=== PATIENT | female | born 1970 | race Caucasian/White ===

== ENCOUNTER 2018-09-03 09:16 | Day surgery (SDC) | payer BC ==
[2018-09-03 09:50] LABS: ADD MAN DIFF? NO
[2018-09-03 09:53] LABS: WHITE BLOOD COUNT 5.5 10^3/ul (4.8-10.8)
[2018-09-03 09:53] LABS: BASOPHILS % 0.6 % (0.0-2.0); EOSINOPHILS # 0.1 10^3/ul (0.0-0.5); EOSINOPHILS % 1.8 % (0.0-7.0); HEMATOCRIT 39.6 % (37.0-47.0); HEMOGLOBIN 13.5 g/dl (12.0-16.0); LYMPHOCYTES # 1.6 10^3/ul (0.8-2.9); LYMPHOCYTES % 29.2 % (15.0-51.0); MEAN CORPUSCULAR HEMOGLOBIN 30.7 pg (29.0-33.0); MEAN CORPUSCULAR HGB CONC 34.1 g/dl (32.0-37.0); MEAN PLATELET VOLUME 9.1 fl (7.4-10.4); MONOCYTE # 0.6 10^3/ul (0.3-0.9); MONOCYTES % 11.4 % (0.0-11.0); NEUTROPHIL # 3.1 10^3/ul (1.6-7.5); NEUTROPHILS % 56.4 % (39.0-77.0); PLATELET COUNT 309 10^3/UL (140-415); RED CELL DISTRIBUTION WIDTH 13.6 % (11.5-14.5)
[2018-09-03 10:12] LABS: INR 0.87; PROTIME 11.9 Sec (11.9-14.9); PT RATIO 0.9
[2018-09-03 10:13] LABS: ALANINE AMINOTRANSFERASE 30 IU/L (13-69); ALBUMIN 4.5 g/dl (3.3-4.9); ALBUMIN/GLOBULIN RATIO 1.55; ALKALINE PHOSPHATASE 73 IU/L (42-121); ANION GAP 11 (5-13); ASPARTATE AMINO TRANSFERASE 33 IU/L (15-46); BILIRUBIN,INDIRECT 0.3 mg/dl (0-1.1); BILIRUBIN,TOTAL 0.3 mg/dl (0.2-1.3); BLOOD UREA NITROGEN 12 mg/dl (7-20); CALCIUM 9.4 mg/dl (8.4-10.2); CARBON DIOXIDE 26 mmol/L (21-31); CHLORIDE 106 mmol/L (97-110); CREATININE 0.49 mg/dl (0.44-1.00); Estimated GFR > 60 mL/min (>60); GLUCOSE 97 mg/dl (70-220); PARTIAL THROMBOPLASTIN TIME 29.1 Sec (23.0-35.0); POTASSIUM 4.2 mmol/L (3.5-5.1); SODIUM 143 mmol/L (135-144); TOTAL PROTEIN 7.4 g/dl (6.1-8.1)
[2018-09-03] MEDS: SOD CHLORIDE 0.9% 1,000 ML IV (10:16)
[2018-09-03] MEDS ORDERED: DESFLURANE 15 MIN (11:50)
[2018-09-03] MEDS ORDERED: ONDANSETRON 4 MG INJ (11:54)
[2018-09-03] MEDS ORDERED: NEOSTIGMINE 3 MG/3 ML SYRINGE (11:54)
[2018-09-03] MEDS ORDERED: FENTAnyl 50 MCG/ML VIAL (11:54)
[2018-09-03] MEDS ORDERED: CEFAZOLIN 1 GM INJ (11:54)
[2018-09-03] MEDS ORDERED: PROPOFOL 20 ML (11:54)
[2018-09-03] MEDS ORDERED: GLYCOPYRROLATE 0.4 MG INJ (11:54)
[2018-09-03] MEDS ORDERED: ROCURONIUM 50 MG INJ (11:54)
[2018-09-03] MEDS ORDERED: DEXAMETHASONE 4 MG/ML 5 ML INJ (11:54)
[2018-09-03] MEDS ORDERED: MIDAZOLAM 1 MG/ML 2 ML INJ (11:54)
[2018-09-03] MEDS ORDERED: hydrALAzine 20 MG INJ IV (12:00)
[2018-09-03] MEDS ORDERED: ONDANSETRON 4 MG INJ IV (12:00)
[2018-09-03] MEDS ORDERED: HYDROmorphONE 1 MG/5 ML IV SYRINGE IV ×2 (12:00)
[2018-09-03] MEDS ORDERED: FENTAnyl 50 MCG/ML VIAL IV ×3 (12:00)
[2018-09-03] MEDS ORDERED: ALBUTEROL 0.083% (NEB) 2.5 MG/3 ML AMP HHN (12:00)
[2018-09-03] MEDS ORDERED: EPHEDrine 25 MG/5 ML SYG IV (12:00)
[2018-09-03] MEDS ORDERED: DIPHENHYDRAMINE 50 MG INJ IV (12:00)
[2018-09-03] MEDS ORDERED: TRIMETHOBENZAMIDE 100 MG/ML VIAL IM (12:00)
[2018-09-03] MEDS ORDERED: IPRATROPIUM (NEB) 0.5 MG/2.5 ML AMP HHN (12:00)
[2018-09-03] MEDS ORDERED: MEPERIDINE 25 MG INJ IV (12:00)
[2018-09-03] MEDS ORDERED: LABETALOL HCL 20MG INJ IV (12:00)
[2018-09-03] MEDS ORDERED: OXYCODONE/ACETAMINOPHEN (5/325) TAB PO (12:00)
[2018-09-03] MEDS ORDERED: MIDAZOLAM 1 MG/ML 2 ML INJ IV (12:00)
[2018-09-03] MEDS: BUPIVACAINE 0.25% (MPF) 30 ML INJ (12:44)
[2018-09-03] MEDS ORDERED: SUGAMMADEX SODIUM 200 MG/2 ML VIAL IV (12:51)
[2018-09-03] MEDS: CEFAZOLIN 2 GM/50 ML (PMX) 50 ML IVPB (13:34)
[2018-09-03] MEDS: HYDROmorphONE 1 MG/5 ML IV SYRINGE IV (13:34)
[2018-09-03] MEDS: HYDROCODONE/APAP (5/325) TAB PO (13:57)
[2018-09-03] MEDS: OXYCODONE/ACETAMINOPHEN (5/325) TAB PO (14:33)
== END 2018-09-03 15:07 | disposition home or self-care (01) ==
LOC: SDS 09:16
DX: C82.35 Follicular lymphoma grade IIIa, lymph nodes of inguinal region and lower limb (principal)
CPT/HCPCS: 14001; 71045; 80053; 84703; 85025; 85610; 85730; 88307; 88313; 93005

== ENCOUNTER 2018-11-21 11:17 | Emergency (ER) | payer BC | END 2018-11-21 13:06 | disposition home or self-care (01) | LOC: FTE 11:17 | DX: Z45.2 Encounter for adjustment and management of vascular access device (principal); C56.9 Malignant neoplasm of unspecified ovary | CPT/HCPCS: 71046; 99283-25 ==

== ENCOUNTER 2018-12-06 09:07 | Day surgery (SDC) | payer BC ==
[2018-12-06] MEDS ORDERED: SOD CHLORIDE 0.9% 1,000 ML IV (09:59)
[2018-12-06 10:19] LABS: ADD MAN DIFF? NO
[2018-12-06 10:23] LABS: WHITE BLOOD COUNT 3.5 10^3/ul (4.8-10.8)
[2018-12-06 10:23] LABS: BASOPHILS % 0.6 % (0.0-2.0); EOSINOPHILS # 0.1 10^3/ul (0.0-0.5); EOSINOPHILS % 3.7 % (0.0-7.0); HEMATOCRIT 35.4 % (37.0-47.0); LYMPHOCYTES # 0.8 10^3/ul (0.8-2.9); LYMPHOCYTES % 22.2 % (15.0-51.0); MEAN CORPUSCULAR HEMOGLOBIN 30.7 pg (29.0-33.0); MEAN CORPUSCULAR HGB CONC 33.9 g/dl (32.0-37.0); MEAN CORPUSCULAR VOLUME 90.5 fl (82.0-101.0); MEAN PLATELET VOLUME 9.3 fl (7.4-10.4); MONOCYTE # 0.6 10^3/ul (0.3-0.9); MONOCYTES % 17.3 % (0.0-11.0); NEUTROPHIL # 1.9 10^3/ul (1.6-7.5); NEUTROPHILS % 55.9 % (39.0-77.0); PLATELET COUNT 274 10^3/UL (140-415); RED BLOOD COUNT 3.91 10^6/ul (4.20-5.40); RED CELL DISTRIBUTION WIDTH 13.8 % (11.5-14.5)
[2018-12-06 10:26] LABS: INR 0.91; PARTIAL THROMBOPLASTIN TIME 29.6 Sec (23.0-35.0); PROTIME 12.4 Sec (11.9-14.9)
[2018-12-06 10:34] LABS: ALANINE AMINOTRANSFERASE 64 IU/L (13-69); ALBUMIN 4.2 g/dl (3.3-4.9); ALBUMIN/GLOBULIN RATIO 1.44; ALKALINE PHOSPHATASE 63 IU/L (42-121); ANION GAP 7 (5-13); ASPARTATE AMINO TRANSFERASE 47 IU/L (15-46); BILIRUBIN,INDIRECT 0.3 mg/dl (0-1.1); BILIRUBIN,TOTAL 0.3 mg/dl (0.2-1.3); BLOOD UREA NITROGEN 10 mg/dl (7-20); CALCIUM 9.4 mg/dl (8.4-10.2); CARBON DIOXIDE 25 mmol/L (21-31); CHLORIDE 106 mmol/L (97-110); CREATININE 0.49 mg/dl (0.44-1.00); Estimated GFR > 60 mL/min (>60); GLUCOSE 93 mg/dl (70-220); POTASSIUM 3.8 mmol/L (3.5-5.1); SODIUM 138 mmol/L (135-144); TOTAL PROTEIN 7.1 g/dl (6.1-8.1)
[2018-12-06] MEDS ORDERED: CEFAZOLIN 1 GM/50 ML (PMX) 50 ML IVPB ×2 (11:00→11:27)
[2018-12-06] MEDS ORDERED: POLYMYXIN/BACITRACIN 1L IRRIG IRR (11:00)
[2018-12-06] MEDS ORDERED: LIDOCAINE 1%/EPI 30 ML INJ (11:02)
[2018-12-06] MEDS ORDERED: FENTAnyl 50 MCG/ML VIAL (11:26)
[2018-12-06] MEDS ORDERED: MIDAZOLAM 1 MG/ML 2 ML INJ (11:27)
[2018-12-06] MEDS ORDERED: LIDOCAINE 1%/EPI 30 ML INJ INJ (11:30)
[2018-12-06] MEDS ORDERED: HEPARIN 1000 UNITS/ML 10 ML INJ (11:39)
== END 2018-12-06 14:13 | disposition home or self-care (01) ==
LOC: SDS 09:07
DX: C82.35 Follicular lymphoma grade IIIa, lymph nodes of inguinal region and lower limb (principal)
CPT/HCPCS: 36561; 80053; 85025; 85610; 85730; 87070